=== PATIENT | female | born 1945 | race Two or more races ===

== ENCOUNTER 2025-03-29 10:41 | Emergency (ER) | payer MEDICARE, BC ==
[~2025-03-29] VITALS: Ht 167.6 cm; Wt 83.9 kg
[2025-03-29] MEDS ORDERED: ONDANSETRON 4 MG/2 ML VIAL ONE ×2 (11:02→13:14)
[2025-03-29] MEDS ORDERED: HYDROMORPHONE 1 MG/1 ML DISP.SYRIN ONE (11:02)
[2025-03-29] MEDS: ONDANSETRON 4 MG/2 ML VIAL IV ONE ×2 (11:03→13:18)
[2025-03-29] MEDS: HYDROMORPHONE 1 MG/1 ML DISP.SYRIN IV ONE (11:03)
[2025-03-29 11:09] LABS: BASOPHILS # (AUTO) 0.1 K/UL (0.0-0.2); EOSINOPHILS # (AUTO) 0.2 K/uL (0.0-0.7); EOSINOPHILS % (AUTO) 2.1 % (0.0-7.0); HEMATOCRIT 42.1 % (31.2-41.9); LYMPHOCYTES # (AUTO) 5.3 K/uL (0.8-4.8); LYMPHOCYTES % (AUTO) 60.4 % (20.5-51.5); MEAN CORPUSCULAR HEMOGLOBIN 30.2 uug (24.7-32.8); MEAN CORPUSCULAR HGB CONC 33 g/dL (32.3-35.6); MEAN CORPUSCULAR VOLUME 90.8 fL (75.5-95.3); MONOCYTES # (AUTO) 0.4 K/uL (0.1-1.30); MONOCYTES % (AUTO) 4.8 % (0.0-11.0); NEUTROPHILS # (AUTO) 2.8 K/uL (1.8-8.9); NEUTROPHILS % (AUTO) 31.7 % (38.5-71.5); PLATELET COUNT (AUTO) 337 K/uL (179-408); RED BLOOD CELL COUNT(AUTO) 4.64 MIL/uL (3.63-4.92); RED CELL DISTRIBUTION WIDTH 13.6 % (12.3-17.7); WHITE BLOOD COUNT (AUTO) 8.8 K/uL (3.8-11.8)
[2025-03-29 11:15] LABS: CALCIUM 9.5 mg/dL (8.5-10.1); CARBON DIOXIDE 23 mmol/L (21-32); CHLORIDE 107 mmol/L (98-107); CREATININE 0.9 mg/dL (0.6-1.3); GLUCOSE 147 mg/dL (74-106); POTASSIUM 3.4 mmol/L (3.5-5.1); SODIUM SERUM 142 mmol/L (136-145); UREA NITROGEN, BLOOD 11 mg/dL (7-18)
[2025-03-29] MEDS ORDERED: ETOMIDATE 20 MG/10 ML VIAL ONE (11:20)
[2025-03-29] MEDS ORDERED: METOCLOPRAMIDE HCL 10 MG/2 ML VIAL ONE (11:21)
[2025-03-29 11:23] LABS: DIFFERENTIAL COMMENT 1
[2025-03-29] MEDS: METOCLOPRAMIDE HCL 10 MG/2 ML VIAL IV ONE (11:27)
[2025-03-29 11:28] LABS: ALANINE AMINOTRANSFERASE 20 U/L (14-59); ALBUMIN 3.8 g/dL (3.4-5.0); ALKALINE PHOSPHATASE 67 U/L (50-136); ASPARTATE AMINOTRANSFERASE 17 U/L (15-37); BILIRUBIN,DIRECT 0.2 mg/dL (0.0-0.2); BILIRUBIN,TOTAL 0.6 mg/dL (0.2-1.0); NT-PRO BNP 46 pg/mL (0-125); TOTAL PROTEIN, SERUM 7.1 g/dL (6.4-8.2)
[2025-03-29] MEDS: ETOMIDATE 20 MG/10 ML VIAL IV ONE (11:30)
[2025-03-29] MEDS ORDERED: HYDR-3972 PO (12:03)
[2025-03-29] MEDS ORDERED: KETOROLAC TROMETHAMINE 15 MG INJ ONE (15:26)
[2025-03-29] MEDS: KETOROLAC TROMETHAMINE 15 MG INJ IVP ONE (15:30)
[2025-03-29 16:41] VITALS: BP 139/67; O2SAT 98
== END 2025-03-29 16:41 | disposition home or self-care (01) ==
LOC: ER 10:45
DX: S43.014A Anterior dislocation of right humerus, initial encounter (principal); I10 Essential (primary) hypertension; R07.9 Chest pain, unspecified; Z85.3 Personal history of malignant neoplasm of breast; Z88.1 Allergy status to other antibiotic agents; Z90.12 Acquired absence of left breast and nipple; Z20.822 Contact with and (suspected) exposure to COVID-19; W01.0XXA Fall on same level from slipping, tripping and stumbling without subsequent striking against object, initial encounter; Y93.89 Activity, other specified; Y92.89 Other specified places as the place of occurrence of the external cause; Y99.8 Other external cause status
CPT/HCPCS: 99285; 23650; 96374; 96375; 71045; 87426; 80076; 80048; 83880; 85025; 85730; 84484; 36415; 73020 ×2; 99152; 93005; 96376; J1885; J1171; J3490; J2765; J2405 ×2; A4606; A4663; G0500